=== PATIENT | female | born 1975 | race Caucasian/White ===

== ENCOUNTER 2017-05-20 19:07 | Emergency (ER) | payer BC ==
[~2017-05-20] VITALS: Ht 167.6 cm; Wt 56.2 kg
[2017-05-20] MEDS ORDERED: BUPR100T4 (19:26)
[2017-05-20] MEDS ORDERED: IBUPROFEN 800 MG TABLET PO ONE (20:00)
[2017-05-20] MEDS ORDERED: HYDROCODONE/APAP 5-325MG TABLET PO ONE (20:00)
--- NOTE | 2017-05-20 20:08 | NUR ---
PT IN BED. MED EVAL COMPLETED BY MD RHODES. A&OX4. VSS. ALL ORDERED MEDS GIVEN. AFTERCARE INSTRUCTIONS GIVEN BY MD RHODES. PT INSTRUCTED NOT TO DRIVE. PT STATED THAT BOYFRIEND IS COMING TO PICK HER UP.
--- NOTE | 2017-05-20 20:16 | NUR ---
PT LEFT ER WITH BOYFRIEND. PT VERBALIZED UNDERSTANDING THAT SHE IS NOT TO DRIVE FOR THE REST OF THE NIGHT.
[2017-05-20] MEDS ORDERED: IBUPROFEN 800 MG TABLET ONE (20:18)
[2017-05-20] MEDS ORDERED: HYDROCODONE/APAP 5-325MG TABLET ONE (20:18)
[2017-05-20 20:19] VITALS: BP 101/66
== END 2017-05-20 20:20 | disposition home or self-care (01) ==
LOC: ER 19:08
DX: M75.21 Bicipital tendinitis, right shoulder (principal); Z88.2 Allergy status to sulfonamides
CPT/HCPCS: A4663